=== PATIENT | male | born 1970 | race Caucasian/White ===

== ENCOUNTER 2020-04-03 08:55 | Emergency (ER) | payer SELFPAY ==
[~2020-04-03] VITALS: Ht 190.5 cm; Wt 127.3 kg
[~2020-04-03 08:55] MED LIST: CELEXA40 MG PO; FLEXERIL5 MG PO; INDERAL 20MG20 MG PO; LEVAQUIN 750MG750 M1 PO; MOTRIN 800800 MG/TAB PO; NORCO 325 MG-51 TAB PO; TENORMIN100 MG PO; XANAX 1MG1 MG PO; ZOLOFT 100MG100 MG PO
[2020-04-03 09:04] VITALS: TEMP 97.9
[2020-04-03 09:25] LABS: BASO % 0.2 % (0.0-2.0); EOS # 0.1 (0.0-0.7); EOS % 1.6 % (0-4.0); GRAN # 6.3 (1.4-6.5); GRAN % 74.5 % (42.2-75.2); HEMATOCRIT 49.4 % (42.0-52.0); HEMOGLOBIN 16.9 g/dl (13.5-18.0); LYMPH # 1.5 (1.2-3.4); LYMPH % 18.1 % (20.0-51.0); MEAN CELL VOLUME 86 fl (80.0-100.0); MEAN CORPUSCULAR HEMOGLOBIN 29 pg (27.0-31.0); MEAN CORPUSCULAR HGB CONC 34 g/dl (33.0-37.0); MEAN PLATELET VOLUME 9.1 fl (7.4-10.4); MONO # 0.4 (0.1-0.6); MONO % 5.2 % (1.7-9.3); PLATELET COUNT 228 K/mm3 (130-400); RED BLOOD COUNT 5.77 M/mm3 (4.20-5.60); REDCELL DISTRIBUTION WIDTH-CV 13.5 % (11.5-14.5)
[2020-04-03 09:36] LABS: BILIRUBIN,TOTAL 1.2 mg/dL (0.0-1.0); CREATININE, serum 1.43 (0.66-1.25); POTASSIUM 4.2 mmol/L (3.4-5.0); TOTAL PROTEIN 6.9 gm/dL (6.4-8.2)
[2020-04-03 09:48] LABS: ERYTHROCYTE SEDIMENTATION RATE 6 mm/hr (0-30)
[2020-04-03] MEDS ORDERED: ZOLOFT 100MG100 MG PO (10:30)
[2020-04-03] MEDS ORDERED: INDERAL40 MG PO (10:32)
[2020-04-03 11:37] LABS: COLLECTION METHOD CLEAN CATCH
[2020-04-03 11:50] LABS: MUCOUS Present /lpf; PH 5 (5-8); SQUAMOUS EPITHELIAL None Seen /hpf; URINE APPEARANCE Clear; URINE BACTERIA None Seen /hpf; URINE BILIRUBIN Negative (NEGATIVE); URINE BLOOD Negative (NEGATIVE); URINE COLOR Yellow; URINE GLUCOSE 1+ (NEGATIVE); URINE KETONE Negative (NEGATIVE); URINE LEUKOCYTE ESTERASE Negative (NEGATIVE); URINE NITRATE Negative (NEGATIVE); URINE PROTEIN(semi-quant) 1+ (NEGATIVE); URINE RBC None Seen /hpf; URINE UROBILINOGEN Negative (NEGATIVE)
[2020-04-03] MEDS ORDERED: NORCO 325 MG-51 TAB PO (13:30)
[2020-04-03] MEDS ORDERED: PREDNISONE10 MG PO (13:30)
[2020-04-03 13:46] VITALS: BP 93/81; PULSE 111
== END 2020-04-03 13:27 | disposition home or self-care (01) ==
LOC: COL.ER 08:55 → MEDICAL 10:44
PROVIDERS: Family Medicine
DX: L51.9 Erythema multiforme, unspecified (principal); E86.0 Dehydration; F41.9 Anxiety disorder, unspecified
CPT/HCPCS: 99222; J1100; J1200; J3010; J7030; J7120